=== PATIENT | female | born 1985 | race American Indian/Alaskan Native ===

== ENCOUNTER 2016-11-25 15:38 | Emergency (ER) | payer SELFPAY ==
[2016-11-25 16:40] VITALS: BP 116/78
[2016-11-25 17:23] LABS: Basophils % (Auto) 0.8 % (0.0-1.8); Eosinophils % (Auto) 1.3 % (0.0-4.3); Hematocrit 39.6 % (30.3-42.9); Hemoglobin 12.7 gm/dl (10.1-14.3); Mean Corpuscular HGB Conc 32 % (30-34); Mean Corpuscular Hemoglobin 28 pg (28-32); Mean Corpuscular Volume 86 fl (79-97); Platelet Count 334 K/mm3 (140-440); Red Blood Count 4.61 M/mm3 (3.65-5.03); Red Cell Distribution Width 13.7 % (13.2-15.2); White Blood Count 5.1 K/mm3 (4.5-11.0)
[2016-11-25 17:41] LABS: Alanine Aminotransferase 10 units/L (7-56); Albumin 4.2 g/dL (3.9-5); Albumin/Globulin Ratio 1.4 %; Alkaline Phosphatase 61 units/L (35-129); Anion Gap 16 mmol/L; Bilirubin,Total < 0.20 mg/dL (0.1-1.2); Blood Urea Nitrogen 12 mg/dL (7-17); Calcium 9.2 mg/dL (8.4-10.2); Carbon Dioxide 26 mmol/L (22-30); Chloride 101.5 mmol/L (98-107); Glucose 100 mg/dL (65-100); Lipase 44 units/L (13-60); Potassium 4.1 mmol/L (3.6-5.0); Sodium 139 mmol/L (137-145); Total Protein 7.3 g/dL (6.3-8.2)
--- NOTE | 2016-11-26 10:49 | ED Elopement Review ---
ED Pt Elopement review - Results review Lab results: Laboratory Tests 11/25/16 11/25/16 16:54 16:54 WBC 5.1 RBC 4.61 Hgb 12.7 Hct 39.6 MCV 86 MCH 28 MCHC 32 RDW 13.7 Plt Count 334 Lymph % (Auto) 42.0 H [place] % (Auto) 8.5 H Eos % (Auto) 1.3 Baso % (Auto) 0.8 Lymph # 2.1 [place] # 0.4 Eos # 0.1 Baso # 0.0 Seg Neutrophils % 47.4 Seg Neutrophils # 2.4 Carbon Dioxide 26 BUN 12 Creatinine 0.8 Estimated GFR > 60 BUN/Creatinine Ratio 15.00 Glucose 100 Calcium 9.2 Total Bilirubin < 0.20 AST 15 ALT 10 Alkaline Phosphatase 61 Total Protein 7.3 Albumin 4.2 Albumin/Globulin Ratio 1.4 Lipase 44 - Call Back decision Pt Call Back Decision: Pt to F/U with PMD
== END 2016-11-26 01:40 | disposition left against medical advice (07) ==
LOC: ED 15:38
DX: R10.9 Unspecified abdominal pain (principal); M25.572 Pain in left ankle and joints of left foot; Z53.21 Procedure and treatment not carried out due to patient leaving prior to being seen by health care provider
CPT/HCPCS: 36415; 80053; 83690; 85025; 93005; 93010

== ENCOUNTER 2017-12-08 00:14 | Emergency (ER) | payer SELFPAY ==
[2017-12-08 00:37] VITALS: BP 132/90
[2017-12-08 01:02] LABS: Basophils % (Auto) 0.9 % (0.0-1.8); Eosinophils % (Auto) 1.1 % (0.0-4.3); Hematocrit 38.9 % (30.3-42.9); Hemoglobin 13.1 gm/dl (10.1-14.3); Lymphocytes # (Auto) 2.3 K/mm3 (1.2-5.4); Mean Corpuscular HGB Conc 34 % (30-34); Mean Corpuscular Hemoglobin 29 pg (28-32); Mean Corpuscular Volume 85 fl (79-97); Monocytes # (Auto) 0.4 K/mm3 (0.0-0.8); Monocytes % (Auto) 9.5 % (0.0-7.3); Platelet Count 355 K/mm3 (140-440); Red Blood Count 4.59 M/mm3 (3.65-5.03); Red Cell Distribution Width 14.4 % (13.2-15.2)
[2017-12-08 01:18] LABS: BUN/Creatinine Ratio 9; Blood Urea Nitrogen 6 mg/dL (7-17); Calcium 9.4 mg/dL (8.4-10.2); Hemolysis Index 0
== END 2017-12-08 00:40 | disposition left against medical advice (07) ==
LOC: ED 00:14
DX: R07.9 Chest pain, unspecified (principal); Z53.21 Procedure and treatment not carried out due to patient leaving prior to being seen by health care provider
CPT/HCPCS: 36415; 80048; 84484; 85025; 93005; 93010

== ENCOUNTER 2018-10-28 16:55 | Emergency (ER) | payer SELFPAY ==
[2018-10-28 17:08] VITALS: BP 149/102
--- NOTE | 2018-10-28 17:10 | Emergency Department Report ---
Blank Doc - Documentation Documentation: 33 y o female presents with chest pain x 30 mins ago pt reports hx of similar symtom reports anxiety no meds chest pain localized Ekg- was normal LAbs, CXR ACC eval
[2018-10-28] MEDS ORDERED: IBUPROFEN PO ONE (17:30)
--- NOTE | 2018-10-28 17:56 | XRay Report ---
PROCEDURE: XR CHEST ROUTINE 2V TECHNIQUE: PA and lateral chest radiographs were obtained. HISTORY: Chest Pain COMPARISONS: None. FINDINGS: Heart: Normal. Mediastinum/Vessels: Normal. Lungs/Pleural space: Normal. Bony thorax: No acute osseous abnormality. Mild scoliosis IMPRESSION: No acute pulmonary disease. This document is electronically signed by Kavon Gallo MD., October 28 2018 05:54:33 PM ET
[2018-10-28 18:04] LABS: Basophils # (Auto) 0.1 K/mm3 (0.0-0.1); Basophils % (Auto) 1.4 % (0.0-1.8); Eosinophils % (Auto) 0.4 % (0.0-4.3); Hematocrit 38.9 % (30.3-42.9); Lymphocytes # (Auto) 1.8 K/mm3 (1.2-5.4); Lymphocytes % (Auto) 37.9 % (13.4-35.0); Mean Corpuscular HGB Conc 33 % (30-34); Mean Corpuscular Volume 85 fl (79-97); Monocytes # (Auto) 0.5 K/mm3 (0.0-0.8); Platelet Count 357 K/mm3 (140-440); Red Blood Count 4.61 M/mm3 (3.65-5.03); Red Cell Distribution Width 13.9 % (13.2-15.2)
[2018-10-28 18:14] LABS: INR 1.05 (0.87-1.13)
[2018-10-28 18:15] LABS: Partial Thromboplastin Time 26.5 Sec. (24.2-36.6)
[2018-10-28 18:21] LABS: Bacteria,Urine 4+ /HPF (Negative); Bilirubin,Urine NEG (Negative); Blood,Urine LG (Negative); Color,Urine Amber (Yellow); Mucus,Urine 3+ /HPF; Urobilinogen,Urine < 2.0 mg/dL (<2.0)
[2018-10-28 18:32] LABS: BUN/Creatinine Ratio 9; Blood Urea Nitrogen 7 mg/dL (7-17); Calcium 9.4 mg/dL (8.4-10.2); Hemolysis Index 5
--- NOTE | 2018-10-28 18:42 | Emergency Department Report ---
ED Chest Pain HPI - General Chief Complaint: Chest Pain Stated Complaint: CHEST PAIN/PANIC/ANXIETY Time Seen by Provider: 10/28/18 17:07 Source: patient Mode of arrival: Ambulatory Limitations: No Limitations - History of Present Illness Initial Comments: tp is a 33 y/ o AA female who presents with chest pain x 30 mins ago with sob and n/v rated at 5/10 left substernal for past 3 hr pt hx cp and anxiety, see for same seen in this ed in pain is sharp, exacerbated by inspiration , relieved by nothing , pain is exacerbating symptoms of anxiety, there is no SI no HI with family members at bedside as support system pt now states anxiety is related to recent break up with girlfriend. LMP today. MD Complaint: chest pain Onset/Timin -: hour(s) Pain Location: substernal, left chest Pain Radiation: none Severity: moderate Severity scale (0 -10): 10 Quality: sharp (IN the) Consistency: constant Improves With: nothing Worsens With: other (stress ) re: nausea. denies: vomting, diaphoresis, dyspnea, sense of impending doom Other Symptoms: cough. denies: fever, syncope, rash, acid taste in mouth, leg swelling, palpitations, burping Treatments Prior to Arrival: none - Related Data On Oral Contraceptives: No Previous Rx's Medication Instructions Recorded Last Taken Type Ibuprofen [Motrin 800 MG tab] 800 mg PO Q8HR PRN #30 tablet 10/28/18 Unknown Rx Allergies Allergy/AdvReac Type Severity Reaction Status Date / Time No Known Allergies Allergy Verified 12/08/17 00:34 Heart Score - HEART Score History: Slightly suspicious EKG: Normal Age: < 45 Risk factors: No known risk factors Troponin: < normal limit HEART Score: 0 ED Review of Systems ROS: Stated complaint: CHEST PAIN/PANIC/ANXIETY Other details as noted in HPI Constitutional: denies: chills, fever Eyes: denies: eye pain, eye discharge, vision change ENT: denies: ear pain, throat pain Respiratory: other (left chest wall pain ). denies: cough, shortness of breath, wheezing Cardiovascular: denies: chest pain, palpitations Endocrine: no symptoms reported Gastrointestinal: denies: abdominal pain, nausea, diarrhea Genitourinary: denies: urgency, dysuria, discharge Musculoskeletal: denies: back pain, joint swelling, arthralgia Skin: denies: rash, lesions Neurological: denies: headache, weakness, paresthesias Psychiatric: anxiety. denies: depression, homicidal thoughts, suicidal thoughts Hematological/Lymphatic: denies: easy bleeding, easy bruising ED Past Medical Hx - Past Medical History Previous Medical History?: No - Surgical History Past Surgical History?: No - Social History Smoking Status: Never Smoker Substance Use Type: Alcohol - Medications Home Medications: Home Medications Medication Instructions Recorded Confirmed Last Taken Type Ibuprofen [Motrin 800 MG tab] 800 mg PO Q8HR PRN #30 tablet 10/28/18 Unknown Rx ED Physical Exam - General Limitations: No Limitations General appearance: alert, in no apparent distress - Head Head exam: Present: atraumatic, normocephalic - Eye Eye exam: Present: normal appearance, PERRL, EOMI Pupils: Present: normal accommodation (ago) - ENT ENT exam: Present: normal orophraynx, mucous membranes moist - Neck Neck exam: Present: normal inspection, full ROM. Absent: tenderness, meningi smus, lymphadenopathy, thyromegaly - Respiratory Respiratory exam: Present: normal lung sounds bilaterally, chest wall tenderness (left lateral chest pain to palpation no bruising no ecchymosis no crepitus ). Absent: respiratory distress, wheezes, stridor - Cardiovascular Cardiovascular Exam: Present: regular rate, normal rhythm, normal heart sounds. Absent: systolic murmur, diastolic murmur, rubs, gallop - Expanded Cardiovascular Exam Expanded Peripheral pulses: 2+: Carotid (R), Carotid (L), Radial (R), Radial (L), Dorsalis Pedis (R), Dorsalis Pedis (L) - GI/Abdominal GI/Abdominal exam: Present: soft, normal bowel sounds - Rectal Rectal exam: Present: deferred - Extremities Exam Extremities exam: Present: normal inspection, full ROM, normal capillary refill. Absent: tenderness - Back Exam Back exam: Present: normal inspection, full ROM. Absent: tenderness, CVA tenderness (R), CVA tenderness (L), muscle spasm, paraspinal tenderness, vertebral tenderness, rash noted - Neurological Exam Neurological exam: Present: alert, oriented X3, CN II-XII intact, normal gait, reflexes normal - Psychiatric Psychiatric exam: Present: normal affect, normal mood, anxious. Absent: depressed, agitated, manic, homicidal ideation, suicidal ideation - Skin Skin exam: Present: warm, dry, intact, normal color. Absent: rash ED Course Vital Signs 10/28/18 10/28/18 17:04 17:08 Temperature 98 F Pulse Rate 100 H 87 Respiratory 20 Rate Blood Pressure 149/102 O2 Sat by Pulse 100 Oximetry PETE score - Pete Score Age > 65: (0) No Aspirin use within the Past 7 Days: (0) No 3 or more CAD Risk Factors: (0) No 2 or more Angina events in past 24 hrs: (0) No Known CAD with more than 50% Stenosis: (0) No Elevated Cardiac Markers: (0) No ST Deviation Greater than 0.5mm: (0) No PETE Score: 0 ED Medical Decision Making - Lab Data Result diagrams: 10/28/18 17:39 10/28/18 17:39 Labs 10/28/18 10/28/18 10/28/18 17:39 17:39 17:39 WBC 4.8 RBC 4.61 Hgb 13.0 Hct 38.9 MCV 85 MCH 28 MCHC 33 RDW 13.9 Plt Count 357 Lymph % (Auto) 37.9 H [place] % (Auto) 11.0 H Eos % (Auto) 0.4 Baso % (Auto) 1.4 Lymph # 1.8 [place] # 0.5 Eos # 0.0 Baso # 0.1 Seg Neutrophils % 49.3 Seg Neutrophils # 2.4 PT 14.4 INR 1.05 APTT 26.5 Sodium 142 Potassium 3.3 L Chloride 103.3 Carbon Dioxide 24 Anion Gap 18 BUN 7 Creatinine 0.8 Estimated GFR > 60 BUN/Creatinine Ratio 9 Glucose 85 Calcium 9.4 Troponin T < 0.010 HCG, Qual Urine Color Urine Turbidity Urine pH Ur Specific [place] Urine Protein Urine Glucose (UA) Urine Ketones Urine Blood Urine Nitrite Urine Bilirubin Urine Urobilinogen Ur Leukocyte Esterase Urine WBC (Auto) Urine RBC (Auto) U Epithel Cells (Auto) Urine Bacteria (Auto) Urine Mucus 10/28/18 10/28/18 17:39 17:40 WBC RBC Hgb Hct MCV MCH MCHC RDW Plt Count Lymph % (Auto) [place] % (Auto) Eos % (Auto) Baso % (Auto) Lymph # [place] # Eos # Baso # Seg Neutrophils % Seg Neutrophils # PT INR APTT Sodium Potassium Chloride Carbon Dioxide Anion Gap BUN Creatinine Estimated GFR BUN/Creatinine Ratio Glucose Calcium Troponin T HCG, Qual Negative Urine Color [place]ha Urine Turbidity Cloudy Urine pH 5.0 Ur Specific [place] 1.021 Urine Protein 30 mg/dl Urine Glucose (UA) Neg Urine Ketones 20 Urine Blood Lg Urine Nitrite Neg Urine Bilirubin Neg Urine Urobilinogen < 2.0 Ur Leukocyte Esterase Sm Urine WBC (Auto) 21.0 H Urine RBC (Auto) 19.0 U Epithel Cells (Auto) 8.0 Urine Bacteria (Auto) 4+ Urine Mucus 3+ Also had a - EKG Data EKG shows normal: sinus rhythm, axis, intervals, QRS complexes, ST-T waves Rate: normal - EKG Data When compared to previous EKG there are: previous EKG unavailable Interpretation: normal EKG (EKG interp by ed attending, NSR No ST Elevated MA ) - Radiology Data Radiology results: report reviewed, image reviewed Ordering Physician: SOCO JENNINGS Date of Service: 10/28/18 Procedure(s): XR chest routine 2V Accession Number(s): [id number] cc: SOCO JENNINGS Fluoro Time In Minutes: PROCEDURE: XR CHEST ROUTINE 2V TECHNIQUE: PA and lateral chest radiographs were obtained. HISTORY: Chest Pain COMPARISONS: None. FINDINGS: Heart: Normal. Mediastinum/Vessels: Normal. Lungs/Pleural space: Normal. Bony thorax: No acute osseous abnormality. Mild scoliosis IMPRESSION: No acute pulmonary disease. This document is electronically signed by Kavon Hines MD., October 28 2018 05:54:33 PM ET Transcribed By: HJ Dictated By: KAVON HINES MD Electronically Authenticated By: KAVON HINES MD Signed Date/Time: 10/28/181755 DD/ 45 TD/TT: 10/28/181745 - Medical Decision Making cp is resolved to 06/01 with ibuprofen given ED, EKG NSR no ST elevated MA, trop: <0.01 cxr normal, cbc&bmp are normal, ua: pos for leuk and wbc pt with current menses, the re is no sob no n/v , pt is tolerating po intake, pt appears well non toxic resp are normal nonlabor lung sounds are clear throught, Heart score: 0, PETE score: 0, WELLS PE score is : 0 pt will follow up with pcp in 2-3 days , psychiatry in 2 days for psych medication refill, pt verbalized agreement and understanding of discharge plan. pt to home with nad at this time Critical care attestation.: If time is entered above; I have spent that time in minutes in the direct care of this critically ill patient, excluding procedure time. ED Disposition Clinical Impression: Chest wall pain, Stress due to family tension Disposition: TO HOME OR SELFCARE Is pt being admited?: No Does the pt Need Aspirin: No Condition: Stable Instructions: Chest Pain (ED), Stress (ED) Prescriptions: Ibuprofen [Motrin 800 MG tab] 800 mg PO Q8HR PRN #30 tablet PRN Reason: pain Referrals: [facility] [Outside] - 2-3 Days MAPLE MANI ZUÑIGA MD [Primary Care Provider] - 2-3 Days Forms: Work/School Release Form(ED) Time of Disposition: 19:20
== END 2018-10-28 19:24 | disposition home or self-care (01) ==
LOC: ED 16:55
DX: R07.89 Other chest pain (principal); Z63.8 Other specified problems related to primary support group
CPT/HCPCS: 36415; 71046; 80048; 81001; 84484; 84703; 85025; 85610; 85730; 87076; 87086; 87186; 93005; 93010